=== PATIENT | male | born 1995 | race Asian ===

== ENCOUNTER 2017-08-05 10:48 | Emergency (ER) | payer OTHER ==
[2017-08-05 10:58] VITALS: RESP 16; TEMP 97.7
--- NOTE | 2017-08-05 11:28 | EDPHY ---
H & P Stated Complaint: Poss infection on penis? Hurts when he pees;sxs x 1 mo Time Seen by Provider: 08/05/17 11:04 HPI/ROS: CHIEF COMPLAINT: Pain in penis. HISTORY OF PRESENT ILLNESS: This patient is a 21 year old male complaining of dysuria ongoing for the last month. He initially complained of pain in his penis, but clarified the pain occurs only with urination. He denies hematuria, frequency, or urgency. No associated penile discharge. No redness or tenderness of penis or scrotum. He denies nausea, vomiting, fever, back pain. He denies history of urinary tract infections in the past. REVIEW OF SYSTEMS: A 10 point review of systems was performed and is negative with the exception of the elements mentioned in the history of present illness. - Personal History Current Tetanus Diphtheria and Acellular Pertussis (TDAP): Unsure - Medical/Surgical History PMH: Denies. Other PMH: neg per pt - Social History Smoking Status: Current every day smoker Additional Social History: [employer] student. Lives in [place]. Endorses daily tobacco use. - Physical Exam Exam: General Appearance: Alert, no distress Eyes: Pupils equal and round, no conjunctival pallor ENT, Mouth: Mucous membranes moist Neck: Normal inspection Respiratory: Lungs are clear to auscultation Cardiovascular: Regular rate and rhythm Gastrointestinal: Abdomen is soft and non-tender Genitourinary: Normal inspection, no discharge, redness or swelling Neurological: A&O, nonfocal, normal gait Skin: Warm and dry, no rash Psychiatric: Mood and affect normal Constitutional: Initial Vital Signs Temperature (C) 36.5 C 08/05/17 10:55 Heart Rate 66 08/05/17 10:55 Respiratory Rate 16 08/05/17 10:55 Blood Pressure 124/70 H 08/05/17 10:55 O2 Sat (%) 97 08/05/17 10:55 O2 Delivery Mode Room Air Allergies/Adverse Reactions: No Known Allergies Allergy (Unverified 08/05/17 10:55) Home Medications: Medication Instructions Recorded NK [No Known Home Meds] 08/05/17 Medical Decision Making ED Course/Re-evaluation: 21 year old male presenting with one month history of dysuria. He has no other complaints or associated symptoms. Plan for UA, gonorrhea and chlamydia testing. No evidence of UTI on UA. Plan to discharge home in good condition. Follow up with urology and return precautions discussed. He will call in two days for results of further testing. The patient is comfortable with this plan. Differential Diagnosis: Differential diagnosis includes does not limited to acute urethritis, UTI, kidney stone, tumor. Departure - Departure Disposition: Home, Routine, Self-Care Clinical Impression: Dysuria Condition: Good Instructions: Dysuria (ED) Additional Instructions: 1. We did not find evidence of a urinary tract infection today. We sent your urine for culture, please call in two days for the results. If these are normal , follow up with urology for continued evaluation. 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 2. Return to the emergency department for fever, worsening pain, flank pain, or other worsening of condition. Referrals: [facility],. [Clinic] - As per Instructions Devonte Canela MD [Medical Doctor] - As per Instructions Report Scribed for: Kari Castro Report Scribed by: Tracy Moses Date of Report: 08/05/17 Time of Report: 11:28 Physician Review and Approval Statement: 08/05/17 11:28 Portions of this note were transcribed by a lead medical technologist. I personally performed a history, physical exam, medical decision making, and confirmed accuracy of information the transcribed note.
[2017-08-05 11:57] LABS: COLOR YELLOW; LEUKOCYTE ESTERASE,URINE NEGATIVE (NEGATIVE); NITRITE,URINE NEGATIVE (NEGATIVE)
[2017-08-05 12:24] VITALS: BP 115/63; PULSE 61; O2SAT 96
[2017-08-07 13:06] LABS: CHLAMYDIA AMPLIFICATION GENPRB NEGATIVE (NEGATIVE)
== END 2017-08-05 12:23 | disposition home or self-care (01) ==
DX: R30.0 Dysuria (principal); F17.200 Nicotine dependence, unspecified, uncomplicated